=== PATIENT | female | born 2000 | race Caucasian/White ===

== ENCOUNTER 2018-12-19 21:28 | Emergency (ER) | payer BC ==
--- NOTE | 2018-12-19 22:43 | EDM.PDOC ---
ED HPI GENERAL MEDICAL PROBLEM - General Chief Complaint: Lower Extremity Injury/Pain Stated Complaint: RT LEG, COLD Time Seen by Provider: 12/19/18 22:00 Source of Information: Reports: Patient History Limitations: Reports: No Limitations - History of Present Illness INITIAL COMMENTS - FREE TEXT/NARRATIVE: ED ambulatory with crutches, Describes stress fracture from running to left upper femur. [facility] [place]. For past week has noted coolness to left leg with some tingling in toes. Pain in extremity with weight bearing, has been unchanged. Has not noted change in color or swelling of leg. No family hx of clotting disease. Admits poor bone density, and hx of eating disorder. Came to ED tonight as had just told mother about coldness of leg. Had been attending [facility] [employer] , not working locally. Report hx of running approximately 50miles per week prior to injury. - Related Data Allergies Allergy/AdvReac Type Severity Reaction Status Date / Time No Known Allergies Allergy Verified 12/19/18 21:46 Home Meds: Home Meds Norgestimate-Ethinyl Estradiol [Sprintec 28 Day Tablet] 1 tab PO DAILY 12/19/18 [History] Past Medical History Psychiatric History: Reports: Eating Disorders Social & Family History - Tobacco Use Smoking Status *Q: Never Smoker Second Hand Smoke Exposure: No - Caffeine Use Caffeine Use: Reports: Coffee - Recreational Drug Use Recreational Drug Use: No Review of Systems - Review of Systems Review Of Systems: ROS reveals no pertinent complaints other than HPI. ED EXAM, GENERAL - Physical Exam Exam: See Below Exam Limited By: No Limitations General Appearance: Alert, No Apparent Distress Eye Exam: Bilateral Eye: EOMI Ears: Normal External Exam, Hearing Grossly Normal Nose: Normal Inspection Throat/Mouth: Normal Inspection Head: Atraumatic, Normocephalic Neck: Full Range of Motion Respiratory/Chest: No Respiratory Distress, Lungs Clear, Normal Breath Sounds Cardiovascular: Normal Peripheral Pulses, Regular Rate, Rhythm, No Edema GI/Abdominal: Normal Bowel Sounds Extremities: Normal Range of Motion, No Pedal Edema, Normal Capillary Refill, Other (left lower extremity cool to touch no swelling no decrease in sensation normal color no change from right lower extremity). No: Pedal Edema, Slow Capillary Refill, Mina's Sign, Mottled, Pallor, Redness Course - Vital Signs Last Recorded V/S: Last Vital Signs Temp 97.9 F 12/19/18 21:46 Pulse 66 12/19/18 21:46 Resp 16 12/19/18 21:46 BP 127/70 12/19/18 21:46 Pulse Ox 93 L 12/19/18 21:46 - Orders/Labs/Meds Orders: Active Orders 24 hr Category Date Time Status Venous Doppler Lwr Ext Rt [US] Urgent Exams 12/19/18 22:39 Taken Labs: Laboratory Tests 12/19/18 12/19/18 12/19/18 Range/Units 22:50 22:50 22:50 WBC 5.8 (5.0-10.0) 10^3/uL RBC 4.40 (4.2-5.4) 10^6/uL Hgb 14.5 (12.0-16.0) g/dL Hct 41.3 (37.0-47.0) % MCV 93.9 (80-100) fL MCH 33.0 (27.0-34.0) pg MCHC 35.1 H (33.0-35.0) g/dL Plt Count 202 (150-450) 10^3/uL Neut % (Auto) 57.7 (42.2-75.2) % Lymph % (Auto) 31.3 (20.5-50.1) % Eaton % (Auto) 9.8 H (2-8) % Eos % (Auto) 1.2 (1.0-3.0) % Baso % (Auto) 0.0 (0.0-1.0) % D-Dimer, Quantitative < 100 (0-400) ng/mL Sodium 136 (135-145) mmol/L Potassium 3.6 (3.6-5.0) mmol/L Chloride 102 (101-111) mmol/L Carbon Dioxide 24.0 (21.0-31.0) mmol/L Anion Gap 13.6 BUN 13 (7-18) mg/dL Creatinine 0.6 (0.6-1.3) mg/dL Est Cr Clr Drug Dosing 112.86 mL/min Estimated GFR (MDRD) > 60 BUN/Creatinine Ratio 21.66 Glucose 93 (74-105) mg/dL Calcium 9.1 (8.4-10.2) mg/dl Magnesium 1.9 (1.8-2.5) mg/dL Total Bilirubin 0.5 (0.2-1.0) mg/dL AST 30 (10-42) IU/L ALT 21 (10-60) IU/L Alkaline Phosphatase 52 (42-121) IU/L Total Protein 7.0 (6.7-8.2) g/dl Albumin 4.2 (3.2-5.5) g/dl Globulin 2.8 Albumin/Globulin Ratio 1.50 - Radiology Interpretation Free Text/Narrative:: [facility] [place] [facility] Final Radiology Report Call: [phone] assistance Online chat: [email or web address] Name: MICHELE YO Age: 18Years F Date: 12/19/2018 SSN: -- : 2000 Study: US DUPLEX EXTREM VEINS [email or web address] Requesting Physician: UNRULY PHILLIPS Images: 28 Addl Studies: Provided Clinical History: Contrast: Without Contrast Medium: Contrast Amount: Contrast Method: Page 1 of 2 EXAM: US Duplex Right Lower Extremity Veins, Limited EXAM DATE/TIME: 12/19/2018 11:14 PM CLINICAL HISTORY: 18 years old, female; Signs and symptoms; Other: RT leg cold to touch TECHNIQUE: Imaging protocol: Real-time Duplex ultrasound of the Right Lower Extremity with 2-D badillo scale, color Doppler flow and spectral waveform analysis. Limited exam was focused on the right lower extremity veins. COMPARISON: No relevant prior studies available. FINDINGS: Right deep veins: Unremarkable. The common femoral, femoral, proximal profunda femoral and popliteal veins are patent without thrombus. Normal Doppler waveforms. Normal compressibility and/or augmentation response. Right superficial veins: Unremarkable. Saphenofemoral junction is patent without thrombus. Soft tissues: Unremarkable. IMPRESSION: No acute findings. No evidence of deep vein thrombosis. Thank you for allowing us to participate in the care of your patient. - Re-Assessments/Exams Free Text/Narrative Re-Assessment/Exam: 12/20/18 05:[address] Joanna Barnes Vascular Surgeon. Patient and findings reviewed. including US results. Sx likely from Sympathetic reflexive dystrophy and usually will resolve when extremity is more functional with movement and weight bearing. If ongoing symptoms, follow with primary or contact vascular office. Departure - Departure Time of Disposition: 00:00 Disposition: Home, Self-Care 01 Condition: Good Clinical Impression: Hx of fracture of femur Sympathetic reflex dystrophy, lower limb Qualifiers: Laterality: left Qualified Code(s): G90.522 - Complex regional pain syndrome I of left lower limb - Discharge Information *PRESCRIPTION DRUG MONITORING PROGRAM REVIEWED*: Yes *COPY OF PRESCRIPTION DRUG MONITORING REPORT IN PATIENT [place]: No Instructions: Complex Regional Pain Syndrome Referrals: PCP,None [Primary Care Provider] - Forms: ED Department Discharge Additional Instructions: follow up with ortho specialist in am urgent follow up if swelling or change in color of extremity - My Orders Last 24 Hours: My Active Orders 12/19/18 22:39 Venous Doppler Lwr Ext Rt [US] Urgent - Assessment/Plan Last 24 Hours: My Active Orders 12/19/18 22:39 Venous Doppler Lwr Ext Rt [US] Urgent
[2018-12-19 23:16] LABS: ANION GAP 13.6; CHLORIDE,CL 102 mmol/L (101-111); SODIUM,NA 136 mmol/L (135-145)
== END 2018-12-20 00:18 | disposition home or self-care (01) ==
LOC: DL.ED 21:28
DX: G90.522 Complex regional pain syndrome I of left lower limb (principal); Z79.899 Other long term (current) drug therapy; Z87.81 Personal history of (healed) traumatic fracture
CPT/HCPCS: 36415; 80053; 83735; 85025; 85379; 93971; 99285-25